=== PATIENT | female | born 1940 | race Caucasian/White ===

== ENCOUNTER → 2017-06-24 | Outpatient (CLI) | payer MEDICARE ==
[~2017-06-24] MED LIST: ALB.5NB20 IH; AMLO-147 PO; LIDOCAINE 1% (MPF) 5 ML VIAL SC ONE
--- NOTE | 2017-06-24 17:33 | RADRPT ---
PROCEDURE: Ultrasound guidance for placement of needle in left upper extremity vein. CLINICAL INDICATION: Venous access. TECHNIQUE: Limited sonography of the left upper extremity was performed. Ultrasound images were recorded and s tored in the patient's medical record. COMPARISON: None. FINDINGS: The ultrasound images demonstrate a patent left upper extremity vein. The PICC line was inserted by the PICC line nurse. IMPRESSION: 1. Ultrasound guidance for a needle placement in a left upper extremity vein. 2. The left upper extremity vein is patent. RPTAT: QQ .Jose Cox MD, MD Date Time Electronically viewed and signed by .Jose Cox MD, MD on 06/24/2017 17:33 .R/
--- NOTE | 2017-06-24 17:36 | RADRPT ---
PROCEDURE: XR Chest. CLINICAL INDICATION: Check PICC line position. TECHNIQUE: Single frontal view. COMPARISON: No prior study is available for comparison. FINDINGS: There is a left arm PICC line with the tip in the lower superior vena cava. There is a small calcif ied granuloma at the right lung base. The lungs are otherwise clear. The heart is mildly enlarged. There is calcification in the aorta consistent with atherosclerosis. There is no pleural effusion. There is no pneumothorax. IMPRESSION: 1. Left arm PICC line tip in satisfactory position. 2. Cardiomegaly and atherosclerosis. 3. Small calcified granuloma at the right lung base. 4. Otherwise unremarkable study. RPTAT: QQ .Jose Cox MD, MD Date Time Electronically viewed and signed by .Jose Cox MD, on 06/24/2017 17:35 .R/
== END | disposition home or self-care (01) ==
LOC: RAD 13:48
PROVIDERS: ATTEND Internal Medicine Infectious Disease
DX: M86.9 Osteomyelitis, unspecified (principal); I70.90 Unspecified atherosclerosis; I51.7 Cardiomegaly; J84.10 Pulmonary fibrosis, unspecified
CPT/HCPCS: 36569; 71010; 76937; C1769